=== PATIENT | female | born 1980 | race Caucasian/White ===

== ENCOUNTER 2020-12-25 15:11 | Emergency (ER) | payer OTHER, SELFPAY ==
[2020-12-25 15:13] VITALS: BP 156/93; PULSE 86; RESP 16; TEMP 36.8; O2SAT 100; BMI 34.3
--- NOTE | 2020-12-25 16:11 | ED.DENTAL ---
HPI - Dental/Oral General Chief complaint: Dental/Oral Stated complaint: Dental pain Time Seen by Provider: 12/25/20 15:59 Source: patient Mode of arrival: ambulatory History of Present Illness HPI Narrative: 40-year-old female with no significant past medical history presenting to the ED complaining of right lower molar pain, and swelling x2 days with suspected abscess. Denies drainage from area, fever, chills, difficulty or pain when swallowing MD Complaint: tooth pain Related Data Previous Rx's Medication Instructions Recorded clindamycin HCl 450 mg PO Q8H 7 Days #32 cap 12/25/20 hydrocodone-acetaminophen 1 tab PO Q8H PRN 3 Days #9 tab 12/25/20 Allergies Allergy/AdvReac Type Severity Reaction Status Date / Time amoxicillin [AMOXICILLIN] Allergy Unknown HIVES Unverified 03/23/20 15:15 Review of Systems Review of Systems: Constitutional: No Fever, No Chills ENT/Mouth: No Ear Pain, No Nasal Congestion, No Sinus Pain, No Hoarseness, No sore throat, No Swallowing Difficulty, +dental pain Cardiovascular: No Chest Pain, No SOB Respiratory: No Cough Gastrointestinal: No Nausea, No Vomiting, No Abdominal pain Skin: No Skin Lesions, No rash Yes all other systems are reviewed and are negative [facility] Past Medical History Attestation statement: The following information was validated with the patient. Medical History (Updated 12/25/20 @ 16:12 by CHRISTIANO Velasquez) No known health problems Social History Social History Advance Directives: No Advance Directives Information Provided: No Patient : No Physical Exam Vital Signs: Vital Signs: Last Vital Signs Temp 98.2 F 12/25/20 15:13 Pulse 86 12/25/20 15:13 Resp 16 12/25/20 15:13 BP 156/93 H 12/25/20 15:13 Pulse Ox 100 12/25/20 15:13 Body Mass Index 34.3 Const: General: cooperative and healthy appearing Orientation/consciousness: patient oriented x3 Limitations: no limitations HENMT: Other: right lower 2nd molar with gingival tenderness and mild swelling. No appreciable fluctuance /induration + right-sided lower jaw swelling. No erythema. Uvula midline, talking in complete sentences, no respiratory distress Head: Yes normal to inspection Ears: hearing grossly normal bilaterally General nose exam: Normal external nose present Face and sinus: Yes normal facial exam Mouth: Normal oral and palatal mucosa present Teeth and gingiva: caries and poor dentition Throat: Yes posterior oropharynx normal, Yes tonsils normal, Yes uvula midline, No uvula laterally displaced and No uvular edema Eyes: General: appearance normal, both eyes and all related structures EOM: EOMs intact bilaterally Neck: Neck: Yes normal visual inspection, Yes no lymphadenopathy and Yes no meningeal signs Resp: Effort & Inspection: normal respiratory effort, not labored and no stridor Cardio: Rate: regular rate Heart sounds: S1 normal heart sound present and S2 normal heart sound present Skin: Rashes: no rashes Wounds: no wounds Neuro: General: patient oriented x3 and no meningeal signs Gait exam (Neuro): Normal gait present Extrem: General: Yes normal to inspection MDM - Dental/Oral MDM Narrative Medical decision making narrative: 40-year-old female with no significant past medical history presenting to the ED complaining of right lower molar pain, and swelling x2 days with suspected abscess. on exam VSS, NAD/well-appearing, physical exam as above. Concern for early dental abscess or infection vs dental caries. No drainable collection at this time Plan: Augmentin, close dental follow-up Discharge Plan Discharge Clinical Impression: Toothache, Dental abscess Patient Disposition: Home, Self-Care Instructions: Dental Abscess (ED) Additional Instructions: clindamycin as an antibiotic, take as prescribed You need to follow-up with a dentist as soon as possible Take Tylenol and Motrin for pain In addition [place] is an opiate pain medication take when pain is severe only for the next 3 days, do not drink alcohol, drive, or operate anything while taking this medication If swelling persists or worsens, you fevers, or redness please return to the ED Prescriptions: New clindamycin HCl 300 mg capsule 450 mg PO Q8H 7 Days Qty: 32 RF: 0 hydrocodone-acetaminophen 5-325 mg tablet 1 tab PO Q8H PRN (Reason: pain, severe) 3 Days Qty: 9 RF: 0 Referrals: Niels Sanches DMD [Dentist] - 2 days Rossi Pro DMD [Dentist] - 2 days Harry Doty DDS [Physician] - 2 days Denise Marvin DMD [Dentist] - 2 days Josué Lew DMD [Physician] - 2 days Clara Aly, CARLOS ENRIQUE [Physician] - 2 days
== END 2020-12-25 16:36 | disposition home or self-care (01) ==
PROVIDERS: Emergency Provider Emergency Medicine
DX: K04.7 Periapical abscess without sinus (principal)
CPT/HCPCS: 99283